=== PATIENT | male | born 1965 | race Caucasian/White ===

== ENCOUNTER → 2017-12-26 16:05 | Outpatient (CLI) | payer OTHER, SELFPAY ==
--- NOTE | 2017-12-26 16:06 | CT_ITS ---
STUDY: CT RIGHT SHOULDER REASON FOR EXAM: Male, 52 years old. Pain, loose bodies, remote injury RADIATION DOSAGE (If Supplied By Facility): CTDIvol = ( 57.17 ) mGy, DLP = ( 989.29 ) mGycm TECHNIQUE: The patient was scanned in a multi detector CT scanner. High resolution transaxial imaging was performed without the administration of intravenous contrast material. Sagittal and coronal images were reconstructed. Individualized dose optimization techniques were used for this CT. COMPARISON: None. FINDINGS: There is loss of articular cartilage with osteophytosis and vacuum phenomenon at the glenohumeral joint (image 50/101 coronal recon, 30/64 axial). There are numerous joint bodies (image 24, 26, 28/64 axial). There are mild degenerative changes at the acromioclavicular joint (image 57/101 coronal recon). There is no fracture. There is no osseous destruction. Normal coracoid process. Normal visualized lateral clavicle. Normal visualized muscles and soft tissue structures. CT/Extremity Upper without Contra IMPRESSION: Glenohumeral osteoarthritis with multiple joint bodies Osteoarthritis of the acromioclavicular joint Electronically Signed: Rafael Sauceda MD at 9:48 EDT Tel , Service support ,
== END ==
PROVIDERS: Visit Provider Orthopaedic Surgery
DX: M24.011 Loose body in right shoulder (principal); M75.41 Impingement syndrome of right shoulder; M75.42 Impingement syndrome of left shoulder
CPT/HCPCS: 73200

== ENCOUNTER → 2018-02-04 13:39 | Outpatient (CLI) | payer OTHER, SELFPAY ==
--- NOTE | 2018-02-04 15:04 | NEURO ---
NCS and/or EMG Patient Report Ordering Doctor: Rishi Cortes DATE OF SERVICE: 02/04/18 Mahendra Ingram is a 52-year-old male who presents for electrodiagnostic testing the upper limbs. He has chief complaint of numbness and tingling in both hands. Electrodiagnostic findings: Median motor nerve demonstrates normal distal latency, amplitude and conduction velocity bilaterally. Normal ulnar motor response bilaterally. Normal median and ulnar F waves. Prolonged median sensory distal latencies noted bilaterally. On needle EMG, all muscles tested in the upper limbs show no evidence of denervation with normal motor unit action potentials. Electrodiagnostic impression: This is an abnormal study. 1. Findings demonstrate bilateral median mononeuropathy. This is consistent with a mild bilateral carpal tunnel syndrome. 2. No electrodiagnostic evidence for ulnar neuropathy, including cubital tunnel syndrome. If there are any further questions, please do not hesitate to contact me.
== END ==
LOC: PSN 13:39
DX: R20.2 Paresthesia of skin (principal)
CPT/HCPCS: 95886; 95912

== ENCOUNTER → 2018-07-23 17:46 | Outpatient (CLI) | payer OTHER, SELFPAY ==
--- NOTE | 2018-07-23 18:06 | MRI_ITS ---
STUDY: MRI LEFT SHOULDER REASON FOR EXAM: Posterior pain and decreased range of motion, no specific injury. TECHNIQUE: Standardized fat and water weighted pulse sequences were obtained in all 3 orthogonal planes. COMPARISON: None. FINDINGS: There is mild supraspinatus tendinosis (T2 coronal image 12) without discrete tendon tear. Normal infraspinatus tendon. Normal subscapularis tendon. Normal teres minor tendon. Normal supraspinatus muscle. There is mild atrophy with mild partial fat replacement of the infraspinatus and teres minor muscles (T2 sagittal images 4-10). Normal subscapularis muscle. Normal glenohumeral articulation. Normal humeral head and visualized proximal humerus. Normal biceps labral complex. Normal intracapsular long biceps tendon. There is fluid in the bicipital tendon sheath (proton-density axial images 12-15), suggestive of bicipital tenosynovitis. Normal labrum. Normal capsulo- ligamentous complex. There is acromioclavicular arthrosis with hypertrophic changes effacing the subacromial fat (T2 sagittal images 7, 8). There is a Type II morphology (curved), with a neutral orientation. There is no subacromial-subdeltoid bursal fluid. Normal visualized coracohumeral and coracoacromial ligaments. Normal deltoid muscle. Normal trapezius muscle. MRI/Upper Ext Joint Only(Routine) IMPRESSION: Mild supraspinatus tendinosis without demonstrated rotator cuff tear. Mild atrophy of the infraspinatus and teres minor muscles. Bicipital tenosynovitis. Acromioclavicular arthrosis. Electronically Signed: Mukesh Nye MD at 12:14 EDT Tel , Service support ,
== END ==
LOC: MRI 17:46
PROVIDERS: Referring Provider Orthopaedic Surgery; Visit Provider Orthopaedic Surgery
DX: M67.922 Unspecified disorder of synovium and tendon, left upper arm (principal); M75.42 Impingement syndrome of left shoulder; M75.82 Other shoulder lesions, left shoulder
CPT/HCPCS: 73221

== ENCOUNTER → 2018-11-05 08:48 | Outpatient (CLI) | payer OTHER, SELFPAY | PROVIDERS: Referring Provider Family Medicine; Visit Provider Family Medicine | DX: R00.1 Bradycardia, unspecified (principal); Z86.79 Personal history of other diseases of the circulatory system | CPT/HCPCS: 93225; 93226 ==

== ENCOUNTER → 2019-01-08 06:57 | Outpatient (CLI) | payer OTHER, SELFPAY ==
[2018-12-10 16:04] VITALS: BMI 33.6
--- NOTE | 2019-01-08 06:59 | RAD_ITS ---
STUDY: X-RAY CHEST REASON FOR EXAM: Male, 53 years old. Shortness of breath, dyspnea. TECHNIQUE: PA and lateral views of the chest. COMPARISON: Comparison is made with prior examination June 02, 2015. FINDINGS: There is elevation of the right hemidiaphragm. There is evidence of increased markings at the right lung base with areas of confluence suggestive of a early right middle lobe infiltrate. Follow-up is recommended. There is no demonstrated pleural abnormality. Normal size heart. Normal mediastinum and mina. Normal visualized pulmonary arteries. Normal visualized aortic arch and descending thoracic aorta. Normal visualized thoracic spine. Normal visualized ribs, clavicles, and shoulders. There is no demonstrated abnormality of the visualized soft tissue structures of the upper abdomen. RAD/Chest PA and Lateral IMPRESSION: Findings suggestive of early right middle lobe infiltrate. Electronically Signed: Suresh Damon, at 10:20 EDT , Service support ,
--- NOTE | 2019-01-08 06:59 | ECHOCS_ITS ---
Reason For Study: SOB Procedure This was a 2D Doppler, Color Flow transthoracic echocardiogram. The study was technically difficult. Contrast injection was performed. Exam performed in department. Left Ventricle Normal LV size. Segmental dysfunction with preserved ejection fraction (see wall motion). The estimated ejection fraction is 60 %. Transmitral doppler flow suggestive of impaired relaxation of left ventricle. Infero-Basal: Hypokinetic. Right Ventricle Normal RV size. Normal systolic function. Atria Normal left atrium. Normal right atrium. No doppler evidence for ASD. Mitral Valve There is no mitral annular calcification. Normal mitral valve. Trivial mitral valve insufficiency. Tricuspid Valve Normal tricuspid valve. Trivial tricuspid valve insufficiency. Right ventricular systolic pressure estimated to be 22 mmHg. Aortic Valve Trisinus/trileaflet aortic valve. Mild focal aortic valve calcification. Pulmonic Valve The pulmonic valve is not well visualized. Great Vessels Normal sized aortic root. Pericardium/Pleural No pericardial effusion. Medication Diluted definity 3.5ml given slow IV push to enhance endocardial definition. MMode/2D Measurements & Calculations LVIDd: 5.5 cm IVSd: 1.0 cm Ao root diam: 3.8 cm LVIDs: 3.9 cm LVPWd: 1.3 cm RVDd: 3.1 cm FS: 28.9 % LAV(MOD-bp): 51.7 ml LA A4 area: 18.7 cm2 LA dimension(2D): 3.4 cm LAV(MOD-bp) Indexed: 21.7 ml/m2 LAV(MOD-sp2): 45.7 ml LAV(MOD-sp4): 57.0 ml RA A4 area: 13.6 cm2 Doppler Measurements & Calculations MV E max mak: 47.2 cm/sec Lat Peak E' Mka: 10.3 cm/sec Med Peak E' Mak: 6.5 cm/sec MV A max mak: 82.9 cm/sec E/E' lat: 4.6 E/E' med: 7.2 MV E/A: 0.57 Ao V2 max: 129.3 cm/sec LV V1 max: 101.1 cm/sec PA V2 max: 128.9 cm/sec Ao max P.7 mmHg LV V1 max P.1 mmHg TR max mak: 220.4 cm/sec TR max P.4 mmHg Interpretation Summary The study was technically difficult. Contrast injection was performed. Segmental dysfunction with preserved ejection fraction (see wall motion). The estimated ejection fraction is 60 %. Trivial mitral valve insufficiency. Trivial tricuspid valve insufficiency. Mild focal aortic valve calcification. Right ventricular systolic pressure estimated to be 22 mmHg. Transmitral doppler flow suggestive of impaired relaxation of left ventricle Ordering Physician: Travis Lyons Referring Physician: Jorge Cortes M.D. Performed By: Constance Lacy, RDCS
--- NOTE | 2019-01-08 09:09 | STRESSREP ---
Stress Test Report Date: 01-08-19 Procedure: Exercise tolerance test Indications: Shortness of breath/dyspnea; palpitations Consent: Per the patient Procedure: The patient exercised on a Wilmer protocol for 7 minutes and 20 seconds completing Stage II and 1 minute 20 seconds of Stage III achieving a peak heart rate of 146 bpm (88 % predicted maximal heart rate) with a peak blood pressure 210/78 mmHg and a peak MET capacity of approximately 9 MET's. The baseline ECG demonstrated normal sinus rhythm. The peak exercise ECG demonstrated approximately 1-[address] segment depression in leads II, III, aVF, and V5 through V6 with gradual resolution towards baseline in recovery. There were occasional PVC during exercise and recovery. The functional capacity was considered average. The patient had throat tightness at peak exercise associated with dyspnea with spontaneous resolution in recovery. The examination was discontinued secondary to dyspnea. Impression: 1. Technically adequate (percent predicted maximal heart rate greater than 85%) exercise tolerance test 2. Peak exercise ECG with approximately 1-[address] segment depression in leads II, III, aVF, and V5 through V6 with gradual resolution towards baseline in recovery 3. There were occasional PVCs during exercise and recovery Myocardial perfusion imaging study: Technique: The patient was injected with 14.5 mCi of technetium 99m Cardiolite and subsequently rest SPECT Cardiolite nuclear imaging was performed in the horizontal long, vertical long, and short axis views. The patient exercised on a Wilmer protocol for 7 minutes and 20 seconds completing Stage II and 1 minute 20 seconds of Stage III achieving a peak heart rate of 146 bpm (88 % predicted maximal heart rate) with a peak blood pressure 210/78 mmHg and a peak MET capacity of approximately 9 MET's. The patient was injected with 44.8 mCi of technetium 99m Cardiolite and subsequently stress SPECT Cardiolite nuclear imaging was performed in the horizontal long, vertical long, and short axis views. A gated Cardiolite study at peak stress was obtained. Interpretation: SPECT Cardiolite nuclear imaging demonstrates an element of body motion during image acquisition. Rest and stress SPECT Cardiolite nuclear imaging demonstrate the appearance of diminished tracer uptake in portions of the basal inferior segments without significant change between rest and stress. There is also notation of an area of diminished uptake in portions of the mid to distal inferior segments that are somewhat more prominent following stress as opposed to rest. There is also notation of an area of diminished tracer uptake in the mid inferior segment post stress. There is notation of end-systolic thickening and brightening. The gated Cardiolite study demonstrates myocardial thickening and end were wall motion. The reported LVEF is 51%. Impression: 1. Rest and stress SPECT Cardiolite nuclear imaging at his post realignment and normalization demonstrate myocardial perfusion changes potentially compatible with body motion/artifact, however, an area of previous myocardial injury involving portions of the inferior segments not necessarily be excluded as well as post stress myocardial perfusion changes in portions of the inferior segments compatible with an area of stress-induced myocardial ischemia cannot necessarily be excluded. 2. The gated Cardiolite study reports an LVEF of 51%. This note was generated with [employer] software. It may contain incorrect words, spelling, and punctuation that were not noted in checking the note before signing.
== END ==
LOC: CVS 06:58
PROVIDERS: Referring Provider Internal Medicine Cardiovascular Disease; Visit Provider Internal Medicine Cardiovascular Disease
DX: I49.1 Atrial premature depolarization (principal); I49.3 Ventricular premature depolarization; R06.02 Shortness of breath
CPT/HCPCS: 71046; 78452; 93017; 93306; A9500; Q9957; A4216; C8929

== ENCOUNTER 2019-12-15 12:55 | Emergency (ER) | payer BC, SELFPAY ==
[2018-12-10 16:04] VITALS: BMI 33.6
[2019-12-15 12:56] VITALS: BP 157/97; PULSE 107; RESP 17; TEMP 36.6; O2SAT 98; BMI 34.0
--- NOTE | 2019-12-15 13:59 | CT_ITS ---
STUDY: CT BRAIN WITHOUT CONTRAST REASON FOR EXAM: Male, 54 years old. PAIN RADIATION DOSAGE (If Supplied By Facility): CTDIvol = ( 44.99 ) mGy, DLP = ( 846.73 ) mGycm TECHNIQUE: Transaxial CT imaging of the brain was performed without administration of intravenous contrast material. Individualized dose optimization techniques were used for this CT. COMPARISON: No relevant priors. FINDINGS: Normal soft tissue structures. Normal calvarium. Normal size ventricles and extra-axial spaces for the patient''s age. Normal white matter tracts of the cerebral hemispheres. Normal basal ganglia and thalami. Normal brainstem. Normal cerebellum. There is no intracranial hemorrhage. There are no findings of an acute ischemic infarction. Normal visualized paranasal sinuses. CT/Brain/Head without Contrast IMPRESSION: Normal unenhanced CT scan of the brain. Electronically Signed: Suresh Damon, at 15:22 EST , Service support ,
[2019-12-15] MEDS: 0.9% Normal Saline 1,000 ML 999 ML IV (14:42)
[2019-12-15] MEDS: Metoclopramide 10 MG/2 ML Vial IV (14:45)
[2019-12-15] MEDS: DiphenhydrAMINE 50 MG/ML Syringe 25 MG IV (14:45)
[2019-12-15 14:49] VITALS: PULSE 96; RESP 17; O2SAT 99
[2019-12-15 14:50] VITALS: BP 153/101
[2019-12-15 15:09] LABS: Absolute Lymphocyte Count 1.13 X10^3/uL (0.83-4.51); Absolute Neutrophil Count 6.1 X10^3/uL (2.0-7.7); Basophil# 0.04 X10^3/uL; Basophil% 0.5 % (0-1); Eosinophil# 0.08 X10^3/uL; Hematocrit 43.6 % (40-54); Hemoglobin 14.8 g/dL (13.0-16.5); Lymphocyte # 1.13 X10^3/ul (4.0); Lymphocyte % 14.2 % (19-41); Mean Corp Hgb Conc 33.9 g/dL (32-36); Mean Corpuscular Hgb 29.5 pg (27.0-32.0); Mean Platelet Vol. 10.8 fl (6.2-12.0); Monocyte# 0.62 X10^3/uL; Monocyte% 7.8 % (0-10); NRBC Flagged by Analyzer 0 % (0-5); Neutrophil # 6.08 X10^3/uL (2.7-7.7); Neutrophil % 76.1 % (47-70); POSITIVE COUNT YES; Platelet Count 201 K/mm3 (150-450); RBC Distribution Width CV 12.6 % (11.6-14.6); RBC Distribution Width SD 39.5 fl (35.1-43.9); Red Blood Count 5.01 M/mm3 (4.6-6.2)
[2019-12-15 15:10] LABS: Differential Indicated SCAN CRITERIA MET
[2019-12-15 15:14] LABS: Anion Gap 5 (5-15); BUN 18 mg/dL (7-18); BUN/Creat Ratio 17.5 RATIO (10-20); Calcium,Total 9.3 mg/dL (8.5-10.1); Chloride 105 mmol/L (98-107); Creatinine, Serum 1.03 mg/dL (0.70-1.30); EST Glomerular Filtration Rate 79 mL/min (>60); Est Glom Filt Rate - Afr Amer 96 mL/min (>60); Glucose 99 mg/dL (74-106); Potassium 4.3 mmol/L (3.5-5.1); Sodium Level 138 mmol/L (136-145)
[2019-12-15 15:45] LABS: Differential Comment SCANNED
--- NOTE | 2019-12-15 15:48 | ED.DCSUM_ITS ---
- ER Visit Summary Date of Service: 12/15/19 Chief Complaint: Headache History of Present Illness: The patient is a 54 M who presents with a headache that has been constant for the past 4 days. Patient describes the pain is dull and throbbing. Patient states the pain is over the frontal area. Patient sta fernanda this is worse with laying down. Patient admits to some sinus pressure. Patient admits to some blurry vision and photophobia with this as well. Patient admits to nausea but denies any vomiting. Patient denies any neck or back pain. Patient denies any fevers or chills. Patient states he talked to a coworker who told him he had a similar headache and was diagnosed with bleeding in his brain. Patient is concerned over an intracranial hemorrhage. Physical Examination: Vital signs are stable. Patient is afebrile. Patient is in no acute distress. Oral mucosa is pink and moist. Neck is supple. Trachea is midline. There is no JVD noted. Heart was regular rate and rhythm. Lungs are clear and equal bilaterally. Abdomen is soft. Bowel sounds are normal. There is no tenderness. There is no rebound or guarding noted. Skin is warm dry. Cranial nerves II through XII are intact. There are no focal motor or sensory deficits noted. Extremities are intact. There is no calf tenderness or edema. Test Results: CBC and basic metabolic profile were obtained and were within normal limits. CT scan of the brain was obtained. There is no acute intracranial abnormality. Emergency Department Course and Treatment: Patient was given IV fluids, Reglan, and Benadryl. Patient was feeling better on reevaluation. Patient declined any further analgesic medication. Patient was instructed to rest in a dark quiet room. Patient was instructed to follow-up with his primary care physician in 5 to 7 days. Patient understood and was agreeable with the plan. All questions were answered. Disposition: Discharge home Impression: Headache This note was generated with [employer]en[employer] dictation software. It may contain incorrect words, spelling, and punctuation that were not noted in review of the chart prior to signing ED Disposition - Plan for ED Patient: Disposition: Home or Assisted Living Diagnosis: Headache Instructions: HEADACHE, Unspecified Referrals: Rishi Cortes [Primary Care Provider] - 5-7 Days
[2019-12-15 16:04] VITALS: BP 119/85; PULSE 83; RESP 17; O2SAT 98
== END 2019-12-15 16:05 | disposition home or self-care (01) ==
PROVIDERS: Emergency Provider Emergency Medicine
DX: R51 Headache (principal); H53.8 Other visual disturbances; H53.149 Visual discomfort, unspecified; R06.00 Dyspnea, unspecified; R11.0 Nausea; R35.0 Frequency of micturition; R20.2 Paresthesia of skin
CPT/HCPCS: 70450; 80048; 85025; 96361; 96374; 96375; 99284; J7030; A4216

== ENCOUNTER 2021-04-06 09:28 | Emergency (ER) | payer OTHER, SELFPAY ==
[2021-04-06 09:30] VITALS: BP 170/104; PULSE 90; RESP 16; TEMP 36.8; O2SAT 99; BMI 31.5
[2021-04-06] MEDS: Lidocaine 1% (20 ml mdv) 20 ML Vial INFILT (09:38)
--- NOTE | 2021-04-06 09:51 | EX.ED.GENINJ ---
HPI History of Present Illness Chief Complaint: Laceration Informant: patient Narrative Narrative: 55-year-old male presents the emergency room with laceration to the right thumb. His tetanus is not up-to-date and he does not wish a tetanus. Bleeding controlled at home. Tetanus Immunization: >10 years [facility] Medical History Bradycardia Essential hypertension GENA (obstructive sleep apnea) Premature atrial contraction Premature ventricular contraction Home Medications NK 04/06/21 [History Last Taken Unknown] Allergy/AdvReac Type Severity Reaction Status Date / Time No Known Allergies Allergy Verified 04/06/21 09:29 Family History Father Cancer lung Mother Diabetes Sister Diabetes Surgical History cut right forearm History of appendectomy History of umbilical hernia repair Social History Smoking Status: Current every day smoker tobacco type: cigarettes how long ago did patient quit smokin years ago alcohol intake: never details: social substance use type: former substance user and marijuana caffeine: Yes Type: coffee Number of servings: 5 ROS ROS ED Constitutional Constitutional ED: Denies chills or weight loss Eyes Eyes: Denies change in vision or diplopia ENT ENT ED: Denies ear pain, rhinorrhea or sore throat Cardiovascular Cardiovascular: Denies chest pain, orthopnea, palpitations or racing heartbeat Respiratory/Chest Respiratory/Chest: Denies cough, dyspnea or orthopnea Gastrointestinal Gastrointestinal: Denies abdominal pain, diarrhea, nausea or vomiting Genitourinary Genitourinary ED: Denies dysuria, hematuria or urinary frequency Musculoskeletal Musculoskeletal: Denies arthralgias or myalgias Integumentary Reports other Details: See HPI ; Denies abscess or rash Neurologic Neurologic: Denies headache(s) or weakness Psychiatric Psychiatric: Denies anxiety, depression, suicidal ideation or suicidal thoughts Endocrine Endocrinology: Denies polydipsia, polyphagia or polyuria Allergic/Immunologic Allergic/Immunologic ED: Denies mouth swelling, tongue swelling or urticaria EXAM Physical Exam Const Vital Signs: 04/06/21 09:30 Temperature 98.2 F Temperature Source Temporal Pulse Rate 90 Respiratory Rate 16 Blood Pressure 170/104 H Blood Pressure Mean 126 Pulse Ox 99 Oxygen Delivery Method Room Air Positive well nourished and well developed General Appearance ED: well developed HEENT Reports normocephalic, head/scalp atraumatic and moist mucous membranes Eyes PERRL and EOMs intact bilaterally Neck no lymphadenopathy, supple and no JVD Resp normal respiratory effort and clear to auscultation bilaterally Cardio regular rate, regular rhythm and no murmurs GI normal to inspection, nondistended, normoactive bowel sounds and non-tender Palpation: soft Back/Spine no CVA tenderness and normal ROM Extremity full ROM General Extremety ED: Negative for edema General Extremity: Negative for edema Neuro oriented x3 and CN's II-XII intact bilaterally Sensorium / Orientation: alert Motor Exam: strength 5/5 throughout Psych mental status grossly normal Mood & Affect: Negative for depressed or tearful Skin no rashes or lesions noted Skin Narrative: There is a 2 cm flap laceration to the volar aspect of the distal right thumb. The flap appears pale. There is no active bleeding. Nail was uninjured. MDM MDM MDM Narrative Medical decision making narrative: The wound was locally anesthetized using 1% lidocaine. Was washed with Shur-Clens and explored. 4 simple erupted Ethilon sutures were used to close the wound. He was advised that the flap may not survive. He does not wish a tetanus so I was not updated Discharge Plan Triage Chief Complaint: Laceration ED Provider: Arley Hook Dx/Rx/DC Orders Clinical Impression: Laceration of right thumb Instructions: ED Laceration, Hand: All Closures Prescriptions: No Action NK RF: 0 Primary Care Provider: Rishi Cortes Referrals: Rishi Cortes [Primary Care Provider] - 10 Day for suture removal Disposition Disposition: Home, Self Care
== END 2021-04-06 10:02 | disposition home or self-care (01) ==
LOC: ED 09:58
PROVIDERS: Emergency Provider Emergency Medicine
DX: S61.011A Laceration without foreign body of right thumb without damage to nail, initial encounter (principal); X58.XXXA Exposure to other specified factors, initial encounter; Y93.9 Activity, unspecified; Y92.9 Unspecified place or not applicable; F17.210 Nicotine dependence, cigarettes, uncomplicated
CPT/HCPCS: 12001; 99283